=== PATIENT | male | born 1950 | race Caucasian/White ===

== ENCOUNTER 2017-01-20 11:11 | Emergency (ER) | payer MEDICARE ==
[~2017-01-20] VITALS: Ht 172.7 cm; Wt 64.4 kg
[2017-01-20 11:27] VITALS: BP 164/100
== END 2017-01-20 12:43 | disposition home or self-care (01) ==
LOC: ER 11:13
DX: M19.90 Unspecified osteoarthritis, unspecified site (principal)
CPT/HCPCS: 29125; 73140; 99284; A4606; Z7610